=== PATIENT | female | born 1960 | race Caucasian/White ===

== ENCOUNTER 2017-08-08 07:49 | Day surgery (SDC) | payer OTHER ==
[~2017-08-08] VITALS: Ht 162.6 cm; Wt 57.6 kg
[2017-08-08] VITALS (9 sets, daily range): BP systolic 93–142; BP diastolic 44–81; PULSE 68–97; RESP 16–24; Ht 162.6 cm; Wt 57.6 kg
[~2017-08-08 07:49] MED LIST: HYDR-906 PO; NAPR250T
[2017-08-08] MEDS ORDERED: ZOLP5TAB7 PO (08:26)
[2017-08-08] MEDS ORDERED: CITA20TA11 PO (08:27)
[2017-08-08] MEDS ORDERED: HYDR-906 PO (08:27)
[2017-08-08] MEDS ORDERED: NAPR-688 PO (08:28)
[2017-08-08] MEDS ORDERED: OMEP20CA16 PO (08:29)
[2017-08-08] MEDS ORDERED: DICL75TA2 PO (08:29)
[2017-08-08] MEDS ORDERED: ESCI20TA PO (08:29)
[2017-08-08 09:28] LABS: ADD UMIC YES; UR ASCORBIC ACID NEGATIVE (NEGATIVE); UR BACTERIA FEW /HPF (NONE SEEN); UR BILIRUBIN (Dip) NEGATIVE (NEGATIVE); UR BLOOD (Dip) NEGATIVE (NEGATIVE); UR CLARITY CLOUDY (CLEAR); UR COLOR YELLOW (YELLOW); UR GLUCOSE (Dip) NEGATIVE (NEGATIVE); UR KETONES (Dip) TRACE mg/dL (NEGATIVE); UR LEUKOCYTE ESTERASE (Dip) 2+ Leu/ul (NEGATIVE); UR MUCUS MANY /HPF (NONE SEEN); UR NITRITE (Dip) NEGATIVE (NEGATIVE); UR RBC 139 /HPF (0-5); UR SPECIFIC GRAVITY (Dip) 1.026 (1.003-1.030); UR SQUAMOUS EPITHELIAL CELL MANY /HPF (FEW); UR TOTAL PROTEIN (Dip) NEGATIVE (NEGATIVE); UR UROBILINOGEN (Dip) 2+ mg/dL (NEGATIVE)
--- NOTE | 2017-08-08 11:38 | HPN ---
Date/Time of Note Date/Time of Note DATE: 08/08/17 TIME: 11:38 Interval H&P Admission Note Pt. seen H&P reviewed: No system changes KYLE CORTÉS MD Aug 08, 2017 11:38
--- NOTE | 2017-08-08 11:41 | SIPON ---
Date/Time of Note Date/Time of Note DATE: 08/08/17 TIME: 11:39 Operative Report Preoperative Diagnosis left wrist dital radius maluunion Postoperative Diagnosis same Operation/Procedure Performed osteotomy orif left distal radius Surgeon ronnie Gonzalez assist stephen Anesthesia: general Estimated blood loss: minimal Transfusion Required none Specimen none Grafts/Implants none Complications none KYLE CORTÉS MD Aug 08, 2017 11:41
[2017-08-08] MEDS ORDERED: FENTAnyl 50 MCG/ML VIAL ONE ×2 (11:58→13:02)
[2017-08-08] MEDS ORDERED: MEPERIDINE 25 MG INJ IV PRN (12:00)
[2017-08-08] MEDS ORDERED: HYDROmorphONE (0.2 MG/ML) 10ML SYG IV PRN ×3 (12:00)
[2017-08-08] MEDS ORDERED: hydrALAzine 20 MG INJ IV PRN (12:00)
[2017-08-08] MEDS ORDERED: OXYCODONE/ACETAMINOPHEN (5/325) TAB PO PRN ×2 (12:00)
[2017-08-08] MEDS ORDERED: METOCLOPRAMIDE 10 MG INJ IV PRN (12:00)
[2017-08-08] MEDS ORDERED: EPHEDrine SULFATE 50 MG/5 ML SYG IV PRN (12:00)
[2017-08-08] MEDS ORDERED: DIPHENHYDRAMINE 50 MG INJ IV PRN (12:00)
[2017-08-08] MEDS ORDERED: ONDANSETRON 4 MG INJ IV PRN (12:00)
[2017-08-08] MEDS ORDERED: KETOROLAC 30 MG INJ IV PRN (12:00)
[2017-08-08] MEDS ORDERED: FENTAnyl 50 MCG/ML VIAL IV PRN ×3 (12:00)
[2017-08-08] MEDS ORDERED: LABETALOL HCL 20MG INJ IV PRN (12:00)
[2017-08-08] MEDS ORDERED: ROCURONIUM 50 MG INJ ONE (12:10)
[2017-08-08] MEDS ORDERED: LIDOCAINE 2% (SDV) 5 ML INJ ONE (12:10)
[2017-08-08] MEDS ORDERED: PROPOFOL 100 ML ONE (12:10)
[2017-08-08] MEDS ORDERED: ONDANSETRON 4 MG INJ ONE ×2 (12:11→13:24)
[2017-08-08] MEDS ORDERED: DEXAMETHASONE 4 MG/ML 1 ML INJ ONE (12:11)
[2017-08-08] MEDS ORDERED: CEFAZOLIN 1 GM INJ ONE (12:11)
[2017-08-08] MEDS ORDERED: POLYMYXIN/BACITRACIN 1L IRRIG IRR ONE (12:15)
[2017-08-08] MEDS ORDERED: LIDOCAINE 2%/EPI 30 ML INJ ONE (12:17)
[2017-08-08] MEDS ORDERED: POLYMYXIN/BACITRACIN 1L IRRIG ONE (13:08)
[2017-08-08] MEDS ORDERED: KETOROLAC 30 MG INJ ONE (13:24)
[2017-08-08] MEDS ORDERED: GLYCOPYRROLATE 0.4 MG INJ ONE (13:26)
[2017-08-08] MEDS ORDERED: NEOSTIGMINE 3 MG/3 ML SYRINGE ONE (13:26)
--- NOTE | 2017-08-08 22:56 | OPR ---
DATE OF OPERATION: 08/08/2017 PROCEDURE: Osteotomy, ORIF distal radius fracture, left. This patient's left wrist had a volar Rader's fracture, which has healed, volarly subluxed and angulated deformed. PREOPERATIVE DIAGNOSIS: Malunion distal radius fracture, left. POSTOPERATIVE DIAGNOSIS: Malunion distal radius fracture, left. TREATMENT: Corrective osteotomy and internal fixation of the distal radius, left. SURGEON: Beni Maier MD ANESTHESIA: Park. WELL SERVICING RIG OPERATOR: RODRIGO Parkinson SURGICAL PAUSE: I re-examined the patient in the preop holding area. Confirmed the operative procedure and plan. John in the surgical incision and showed the drawn surgical incision to the patient. Confirmed with her wide awake, the procedure and plan. INFORMED CONSENT: At the time we scheduled the operative procedure. We also talked to the patient about the risks and benefits of surgery. We talked about operative mortality, wound infection, nerve injury, good results, bad results, potential complications. The patient signed the note confirming that conversation. She actually brought a friend, male and we reviewed her entire case right and left wrist and described to him and to her what we were doing in the office. I am not sure how much the patient listens and understands, comprehends. We did our best to give her the maximum amount of an education as we could, but she understands some of what we are doing and why. OPERATIVE PROCEDURE: The patient taken to surgery, anesthetized as above. Sterile prep and drape performed. Flexor carpi radialis, volar radius approach was performed and the malunited fracture subperiosteally exposed. The pronator quadratus was reflected. The brachioradialis was released. We osteotomized the malunion, brought the radius out to length in neutral tilt and held withtemporary k wires. We applied a distal radius plate in this case using the one from [employer], which has star screwdrivers and applied the volar plate in a standard manner. Intraoperative x-rays confirmed that we had gained radial inclination and length . We had neutral radial tilt and no metal was in the joint. We completed the fixation, repaired the wounds with Vicryl deep on the brachioradialis, pronator quadratus, covereing the plate, subcutaneous and subcuticular all with Vicryl. A bulky splint and dressing was applied. Followup will be in our office in a week. DISCHARGE MEDICATIONS: 1. Hydrocodone with acetaminophen. 2. Keflex. She will kept splinted 2-3 weeks and then started on exercises. She will have some stiffness, will take a bunch of months to work through. The operative procedure ran an hour. Dictated By: Beni Maier MD /lynn/kimberley /Document#: [id number] MTDD
--- NOTE | 2017-08-09 08:59 | RADRPT ---
PROCEDURE: X-ray fluoroscopy guidance CLINICAL INDICATION: Left forearm ORIF procedure. TECHNIQUE: Fluoroscopic guidance was utilized for an intraoperative procedure. Fluoro time: 16 seconds Number of images/sequences: 11 COMPARISON: None available FINDINGS: Surgical pins with a fusion plate and screws are seen involving the distal left radius. Images were obtained for localization during intraoperative procedure. Alignment is anatomic. Carpal bones are i ntact. Bony demineralization is seen. No other abnormalities identified. IMPRESSION: 1. X-ray fluoroscopic guidance utilized for intraoperative procedure. 2. ORIF of the left wrist. RPTAT: HMJB .Eduardo Aburto MD, MD Date Time Electronically viewed and signed by .Eduardo Aburto MD, on 08/09/2017 08:59 .B/
--- NOTE | 2017-08-09 22:39 | RADRPT ---
Vent Rate: 65 bpm RR Interval: 0 msec ME Interval: 150 msec QRS Duration: 86 msec QT Interval: 432 msec QTC Interval: 449 msec P-R-T [place]: 49 - 49 - 47 degrees Normal sinus rhythm Normal ECG Electronically Signed By: Drake Ayers [id number]
== END 2017-08-08 15:05 | disposition home or self-care (01) ==
LOC: SDS 07:49
PROVIDERS: ATTEND Orthopaedic Surgery Hand Surgery
DX: S52.502A Unspecified fracture of the lower end of left radius, initial encounter for closed fracture (principal); X58.XXXA Exposure to other specified factors, initial encounter; Y93.9 Activity, unspecified; Y99.9 Unspecified external cause status; Y92.9 Unspecified place or not applicable
CPT/HCPCS: 25400; 73090; 81001; 93005; J0690; J1100; J1885; J2405; J2710; J3010; Z7512; Z7610

== ENCOUNTER 2018-01-23 20:09 | Emergency (ER) | END 2018-01-24 01:03 | disposition left against medical advice (07) ==

== ENCOUNTER 2019-08-15 13:11 | Day surgery (SDC) | payer OTHER ==
[2019-08-15] VITALS (7 sets, daily range): BP systolic 123–135; BP diastolic 61–81; PULSE 60–69; RESP 14–28; Ht 162.6 cm; Wt 58.3 kg
[~2019-08-15] VITALS: Ht 162.6 cm; Wt 58.3 kg
[~2019-08-15 13:11] MED LIST changes: +CITA20TA11 PO; +DICL75TA2 PO; +ESCI20TA PO; +HYDR-4011 PO; -HYDR-906 PO; +NAPR-688 PO; -NAPR250T; +OMEP20CA17 PO; +ZOLP5TAB7 PO
[2019-08-15] MEDS ORDERED: LACTATED RINGER'S 1,000 ML IV SCH (14:00)
[2019-08-15] MEDS ORDERED: MIDAZOLAM 1 MG/ML 2 ML INJ ONE (14:38)
[2019-08-15] MEDS ORDERED: SEVOFLURANE 15 MIN ONE (14:38)
[2019-08-15] MEDS ORDERED: FENTAnyl 50 MCG/ML VIAL ONE (14:38)
[2019-08-15] MEDS ORDERED: ROPIVACAINE 0.5 % 30 ML VIAL ONE (14:46)
[2019-08-15] MEDS ORDERED: ROPIVACAINE 0.2% 20 ML VIAL ONE (14:53)
[2019-08-15] MEDS ORDERED: LIDOCAINE 1%/EPI 30 ML INJ ONE (15:03)
[2019-08-15] MEDS ORDERED: PROPOFOL 20 ML ONE (17:02)
[2019-08-15] MEDS ORDERED: LIDOCAINE 2% (SDV) 5 ML INJ ONE (17:02)
[2019-08-15] MEDS ORDERED: CEFAZOLIN 1 GM INJ ONE (17:02)
[2019-08-15] MEDS ORDERED: ONDANSETRON 4 MG INJ ONE (17:02)
[2019-08-15] MEDS ORDERED: MEPERIDINE 25 MG INJ IV PRN (17:30)
[2019-08-15] MEDS ORDERED: FENTAnyl 50 MCG/ML VIAL IV PRN (17:30)
[2019-08-15] MEDS ORDERED: MIDAZOLAM 1 MG/ML 2 ML INJ IV PRN (17:30)
[2019-08-15] MEDS ORDERED: HYDROmorphONE 1 MG/5 ML IV SYRINGE IV PRN ×2 (17:30)
[2019-08-15] MEDS ORDERED: METOCLOPRAMIDE 10 MG INJ IV PRN (17:30)
[2019-08-15] MEDS ORDERED: DIPHENHYDRAMINE 50 MG INJ IV PRN (17:30)
[2019-08-15] MEDS ORDERED: NALOXONE (0.4 MG/ML) INJ IV PRN (17:30)
[2019-08-15] MEDS ORDERED: ONDANSETRON 4 MG INJ IV PRN (17:30)
== END 2019-08-15 18:36 | disposition home or self-care (01) ==
LOC: SDS 13:11
PROVIDERS: ATTEND Orthopaedic Surgery Hand Surgery
DX: S52.501P Unspecified fracture of the lower end of right radius, subsequent encounter for closed fracture with malunion (principal); X58.XXXD Exposure to other specified factors, subsequent encounter; G56.01 Carpal tunnel syndrome, right upper limb; L85.8 Other specified epidermal thickening; R23.4 Changes in skin texture; E66.9 Obesity, unspecified; Z68.22 Body mass index [BMI] 22.0-22.9, adult
CPT/HCPCS: 11404; 25355; 64721; 64772; 73110; 88304; C1713; J0690; J2250; J2405; J2795; J3010; Z7512; Z7610